=== PATIENT | male | born 1960 | race Caucasian/White ===

== ENCOUNTER 2016-06-09 08:26 | Day surgery (SDC) | payer OTHER ==
[~2016-06-09 08:26] MED LIST: LIDOCAINE W/ SODIUM BICARB 0.5 ML SYR ONE; Lactated Ringers 1,000 ML PRIMARY IV ONE
[2016-06-09 08:48] VITALS: RESP 18
[2016-06-09] MEDS ORDERED: ceFAZolin Inj 3 GM in Sodium Chloride 0.9% 100 ML IV ONE (09:00)
[2016-06-09] MEDS ORDERED: MIDAZOLAM 5 MG/1 ML ONE (09:30)
[2016-06-09] MEDS ORDERED: DEXAMETHASONE PF 10 MG/1 ML VIAL ONE (09:30)
[2016-06-09] MEDS ORDERED: ONDANSETRON 4 MG/2 ML VIAL ONE (09:30)
[2016-06-09] MEDS ORDERED: fentaNYL Inj 250 MCG/5 ML VIAL ONE (09:30)
[2016-06-09] MEDS ORDERED: LIDOCAINE MPF 2% - 5 ML (20 MG/1 ML) ONE (09:30)
[2016-06-09] MEDS ORDERED: SUCCINYLCHOLINE CHLORIDE 20 MG/1 ML - 10 ML ONE (09:31)
[2016-06-09] MEDS ORDERED: BUPivacaine Inj 0.5% PF (5mg/ml) 10ml vial ONE (09:58)
[2016-06-09] MEDS ORDERED: Lidocaine Inj 1% 20 ML ONE (09:58)
[2016-06-09] MEDS ORDERED: BUPivacaine Liposome/PF (Exparel) Inj 20ml vial INFIL ONE ×2 (10:01→10:54)
[2016-06-09] MEDS ORDERED: Acetaminophen 1000mg Inj 100 ML IV ONE (10:04)
[2016-06-09] MEDS ORDERED: Lactated Ringers 1,000 ML PRIMARY IV ONE (10:39)
[2016-06-09] MEDS ORDERED: KETOROLAC 30 MG/1 ML VIAL ONE (10:42)
--- NOTE | 2016-06-09 11:02 | GEN.OPNOTE ---
Operative Note Surgery Date: 06/09/16 Preoperative Diagnosis: Umbilical hernia Postoperative Diagnosis: Umbilical hernia Procedure: Umbilical herniorrhaphy with Prolene mesh Surgeon: Amaury Rose MD Anesthesia Provider: Adryan Penaloza CRNA Anesthesia Type: General Estimated Blood Loss (mL): 5 Fluids: 2 g of Ancef. LR please see anesthesia notes in EMR Pathology: None sent Indications: Patient has a umbilical hernia easily and thinning of the scans is at risk for necrosis Findings: Umbilical hernia with omentum herniating through Complications: None Operative Summary: Patient is brought in operative room placed supine position. His given general endotracheal anesthesia. Prepped draped sterile fashion. Timeout performed per protocols. I infiltrated 0.5 Marcaine 2% Xylocaine a total of 20 mL was used for perioperative anesthesia. Curvilinear incision was made below the umbilicus. Hemostased and left cautery I raise a skin off the hernia sac using electrocautery. Dissected out the hernia sac. Reduced omentum and hernia sac into the abdominal cavity. I freshened up the fascial edges and closed with 0 Prolene continuous running suture. Patient very thin fascia therefore is felt best thing to do is put a piece of mesh to reinforce this. Cut a piece of Prolene mesh to appropriate size and shape. So the mesh to the fascia using 0 Prolene suture continuous running. Tack the umbilicus to the fascia and to the mesh using simple Siddharth 2-0 Vicryl sutures. Skin reapproximated using 4-0 Vicryl continuous running septic restitch. Steri-Strips applied sterile dressing was applied. Patient tolerated procedure well the were no complications. Counts were correct.
[2016-06-09] MEDS ORDERED: NORMAL SALINE 10 ML SYRINGE FLUSH IVP PRN (11:16)
[2016-06-09] MEDS ORDERED: Prochlorperazine Edisylate Inj 10mg/2ml vial IVP PRN (11:16)
[2016-06-09] MEDS ORDERED: fentaNYL Inj 100 MCG/2 ML VIAL IVP PRN (11:16)
[2016-06-09] MEDS ORDERED: PROMETHAZINE 25 MG/1 ML VIAL IM PRN (11:16)
[2016-06-09] MEDS ORDERED: Lactated Ringers 1,000 ML PRIMARY IV SCH (11:30)
[2016-06-09 14:36] VITALS: TEMP 97.4
== END 2016-06-09 13:15 | disposition home or self-care (01) ==
LOC: SDSC 08:26
PROVIDERS: ATTEND Surgery
DX: K42.9 Umbilical hernia without obstruction or gangrene (principal)
CPT/HCPCS: 49585; C9290; J0131; J1885; J2704; J3010; J0330; J0690; J1100; J2001; J2250; J2405; J3490; J7050; J7120

== ENCOUNTER → 2016-06-28 | Outpatient (CLI) | payer OTHER | LOC: MOB LAB 12:39 | DX: T81.31XD Disruption of external operation (surgical) wound, not elsewhere classified, subsequent encounter (principal); Z98.890 Other specified postprocedural states | CPT/HCPCS: 87070; 87205 ==